=== PATIENT | female | born 1950 | race Caucasian/White ===

== ENCOUNTER 2025-04-13 21:11 | Inpatient (IN) | payer MEDICARE, SELFPAY ==
[2025-04-13] VITALS (7 sets, daily range): BP systolic 136–202; BP diastolic 55–70; PULSE 75–92; RESP 14–25; TEMP 38.5–39.8; O2SAT 91–97; BMI 20.9
--- NOTE | ~2025-04-13 | FL_ITS ---
EXAMINATION: XR LUMBAR PUNCTURE CLINICAL INFORMATION: ?r/o meningitis encephalitis COMPARISON: None available. TECHNIQUE: Allowing explaining fluoroscopy-guided lumbar puncture procedure, benefits and risk of via phone to the patient's daughter, and verbal consent was obtained in presence of technologist [employer]. Patient was placed prone on fluoroscopy table and optimal site was selected along the L3-4 disc level. The area was marked and the skin. Marked area was cleaned and draped in usual sterile manner. 1% lidocaine was injected puncture site. A 22-gauge spinal needle was then inserted from the skin intrathecally under fluoroscopy. The stylet was removed and CSF fluid was collected in 4 test tubes. Postprocedure stylet was reintroduced and needle withdrawn. Complete hemostasis was achieved at puncture site. A simple Band-Aid placed on the skin site. Patient tolerated procedure extremely well FINDINGS: On the visualized images there is loss of L4-5 and L5-S1 disc level. There is mild spondylosis at the L3-4, L4-5 disc levels. No visible fracture, lytic or sclerotic process seen. Clear CSF fluid was aspirated in 4 test tubes measuring 11 mL. FLUOROSCOPY TIME: 30 seconds DOSE AREA PRODUCT: 447.7 uGy-m2 (microgray-meter squared) FL/FL guided lumbar puncture LP IMPRESSION: Successful fluoroscopy-guided L3-4 lumbar puncture performed without immediate complications. Electronically signed by: Mejia Hammond MD 04/14/2025 09:08 AM EDT
--- NOTE | ~2025-04-13 | CT_ITS ---
CLINICAL HISTORY: Stroke Protocol CT angiography head and neck with contrast. 3D Postprocessing. Comparison: None Findings: Aortic arch and cervical great vessels are patent with no aneurysm, dissection, hemodynamically significant stenoses, or occlusion. Intracranial arteries are patent. No aneurysm, dissection, hemodynamically significant stenoses, or occlusion. No abnormal intracranial enhancement. The visualized thyroid gland is unremarkable. No cervical mass or fluid collection. Lung apices clear. No acute fracture. IMPRESSION: Patent head and neck CTA. This document has been electronically signed by: Juan Renteria MD on 04/13/2025 22:25:52
--- NOTE | ~2025-04-13 | CT_ITS ---
CLINICAL HISTORY: Stroke Protocol CT head without contrast Comparison: None Findings: No intra-axial mass, midline shift, hydrocephalus, or acute hemorrhage. No significant atrophy-like change or white matter disease. The visualized paranasal sinuses and mastoid air cells are normal. The orbits are unremarkable. No skull fracture. IMPRESSION: 1. No acute intracranial findings. This document has been electronically signed by: Juan Renteria MD on 04/13/2025 21:36:56
--- NOTE | ~2025-04-13 | CT_ITS ---
CLINICAL HISTORY: Diffuse abdominal pain with vomiting diarrhea CT abdomen and pelvis without contrast Comparison: None Findings: This examination is limited by artifact related to the patient's arms and motion. No consolidation or effusion. The adrenal glands are not well visualized on this examination, possibly obscured by adjacent structures. 1.7 cm low-attenuation structure identified within the right hepatic lobe, possibly consistent with a cyst. The gallbladder and solid organs are otherwise within normal limits given the exam limitations. Contrast is identified within the bilateral renal collecting systems, limiting evaluation for urinary calculi. No hydronephrosis or hydroureter demonstrated. No bowel obstruction, pneumoperitoneum, or pneumatosis. Limited evaluation of the bowel related to bowel underdistention. A rectal catheter is in place. Pelvic contents unremarkable. The bladder is filled with contrast and fluid. No focal bladder wall thickening. Normal appendix. The bones are intact. Loss of intervertebral disc space height and vacuum disc phenomenon present at L4-L5. IMPRESSION: 1. Mildly limited examination as described above. No acute inflammatory process identified within the abdomen or pelvis. This document has been electronically signed by: Teddy Hinkle MD on 04/14/2025 00:17:59
--- NOTE | ~2025-04-13 | XR_ITS ---
CLINICAL HISTORY: Fever 1 view chest x-ray Comparison: None Findings: Portions of the exam are obscured by overlying material. No consolidation or effusion. Heart size is normal. No acute fracture. IMPRESSION: 1. No acute findings. This document has been electronically signed by: Juan Renteria MD on 04/13/2025 23:47:48
--- NOTE | 2025-04-13 21:14 | ECG_ITS ---
Test Reason : stroke Blood Pressure : */* mmHG Vent. Rate : 85 BPM Atrial Rate : 85 BPM P-R Int : 162 ms QRS Dur : 84 ms QT Int : 342 ms P-R-T Axes : 70 36 149 degrees QTcB Int : 406 ms Normal sinus rhythm Possible Left atrial enlargement ST & T wave abnormality, consider lateral ischemia Abnormal ECG No previous ECGs available Referred By: Domingo Peralta Electronically Signed By: COURTNEY VILLALTA MD
[2025-04-13 21:24] LABS: Prothrombin Time Whole Bld POC 10.8 sec (11.1-13.5); ~PT, ~INR - Anti Coag Clinic 0.9 (0.9-1.1)
[2025-04-13 21:29] LABS: Basophils Percent Auto 0.2 % (0-2); Mean Corpuscular Volume 84.2 fL (80.0-98.0); PLT CLUMP 1; SCAN SMEAR FLAG 1
[2025-04-13 21:30] LABS: Eosinophils Absolute Auto 0.1 X10*3/uL (0.0-0.4); Hematocrit 29.8 % (37.0-47.0); Hemoglobin 9.9 g/dl (12.0-16.0); Imm Gran Abs Auto 0.06 X10*3/uL (0.00-0.03); Imm Gran Pct Auto 0.5 % (0.0-0.4); Lymphocytes Absolute Auto 1.7 X10*3/uL (1.2-4.9); Lymphocytes Percent Auto 12.9 % (20-40); MANUAL DIFF FLAG SCAN; Mean Corpuscular HGB Conc 33.2 g/dl (31.0-35.0); Mean Platelet Volume 11.2 fL (9.4-12.3); Monocytes Absolute Auto 0.4 X10*3/uL (0.1-1.2); Neutrophils Absolute Auto 10.9 x10*3/uL (2.0-8.3); Neutrophils Percent Auto 82.4 % (45-73); Red Blood Count 3.54 X10*6/uL (4.20-5.50); Red Cell Distribution Width 13.3 % (11.0-16.0)
[2025-04-13] MEDS: iohexoL 350 MG/ML 100 ML INFUS..BTL 75 ML IV (21:31)
[2025-04-13 21:35] LABS: Prothrombin Time 11.5 SEC (10.9-12.4)
[2025-04-13 21:39] LABS: Stroke Lab Use COMPLETE
[2025-04-13 21:45] LABS: Alanine Aminotransferase 20 U/L (0-31); Albumin Level 3.9 g/dL (3.5-5.0); Alkaline Phosphatase 75 U/L (39-117); Anion Gap 16 (12-20); Aspartate Amino Transferase 34 U/L (5-31); Blood Urea Nitrogen 15 mg/dL (9-16); Calcium 9.2 mg/dL (8.4-10.2); Carbon Dioxide 21 mmol/L (22-29); Chloride 111 mmol/L (96-108); Cholesterol 131 mg/dL (<200); Creatinine Clr Calc Pharmacy 49.1; Estimated Glomerular Filt Rate > 60; Glucose Random 112 mg/dL (60-115); HDL Cholesterol 68 mg/dL (>40); LDL Cholesterol Calculated 52 mg/dL (<100); Lactic Acid 2.9 mmol/L (0.5-2.0); Magnesium 1.4 mg/dL (1.6-2.6); Potassium 3.3 mmol/L (3.3-5.1); Sodium 145 mmol/L (135-145); Total Protein 6.4 g/dL (6.5-8.0); Triglycerides 58 mg/dL (<150)
[2025-04-13 21:49] LABS: Troponin-I High Sensitivity 11.2 ng/L (<3.5-17.0)
[2025-04-13] MEDS: 0.9 % Sodium Chloride 2,000 ML 2000 ML IV (21:49)
[2025-04-13 21:50] LABS: Platelet Count 117 X10*3/uL (160-400); SLIDE REVIEW VERIFIED; White Blood Count 13.2 X10*3/uL (4.8-10.8)
[2025-04-13] MEDS: Acetaminophen 1,000 MG/100 ML PIGGYBACK 400 MG IV (21:59)
[2025-04-13] MEDS: ondansetron HCL 4 MG/2 ML VIAL IVPUSH (21:59)
[2025-04-13] MEDS: cefTRIAXone sodium 1 GM VIAL IVPUSH (21:59)
--- NOTE | 2025-04-13 22:09 | ED_ITS ---
HPI - Neuro Symptoms/Deficit General Chief Complaint: Stroke Stated Complaint: stroke alrt lethagic, cold, vomiting, not speaking Source: EMS Mode of arrival: EMS Limitations: altered mental status History of Present Illness ED Provider: HPI Narrative: Patient is brought by EMS for feeling weak shaking vomiting feeling warm since 20:00 was confused and weak overall and not talking moving all 4 extremities after arrival patient was talking minimal words febrile to touch temperature was 103.6 degrees patient also had watery stool according to patient's daughter patient has had a good day was driving came home at 18:00 at 20:00 she called her daughter saying that she had not feeling well when daughter went upstairs she noticed she is having severe chills and was feeling very weak and pale nauseated vomiting Related Data Allergies Allergy/AdvReac Type Severity Reaction Status Date / Time No Known Allergies Allergy Verified 04/13/25 21:42 Review of Systems 2 Review of Systems: Yes all other systems are reviewed and are negative PMFSH Past Medical History Medical History Hypertension Dementia Hypothyroidism Mixed hyperlipidemia Insulin dependent type 2 diabetes mellitus, controlled Social History Social History Smoked in Last 30 Days: No Use of substances other than those prescribed or required for medical reasons: No Advance Directives: Yes Advance Directives Information Provided: Yes Advance Directives on File: No Physical Exam 2 Vital Signs: Vital Signs: Last Vital Signs Temp 98.6 F 04/14/25 05:30 Pulse 63 04/14/25 05:30 Resp 13 04/14/25 05:30 BP 144/71 H 04/14/25 05:30 Pulse Ox 94 04/14/25 03:23 O2 Del Method Room Air 04/14/25 03:23 BMI result Body Mass Index 20.9 Appearance: Lethargic warm to touch No acute distress. Eyes: No pallor or icterus ENT: Pharynx normal. Oral Mucosa moist Neck: Normal inspection. Neck supple. CVS: Normal heart rate and rhythm. Pulses normal. Respiratory: No respiratory distress. Equal air entry bilateral, no wheezing/rales/rhonchi Abdomen: Soft and nontender. Bowel sounds are present, no mass palpable, no CVA tenderness Skin: Skin warm and dry. Normal skin color. Normal skin turgor. Extremities: No lower extremity edema. No calf tenderness Neuro: Oriented X 3. No motor deficit. No sensory deficit.No cerebellar signs , cranial nerves II-XII intact generalized weakness Medications Administered Generic Name Dose Route Start Last Admin Trade Name Dandyq PRN Reason Stop Dose Admin Dexamethasone Sodium Phosphate 10 mg 04/14/25 02:30 04/14/25 03:16 Dexamethasone Sod Phosphate 10 Mg/Ml Vial IVPUSH 10 mg Q6H ABRAHAM Administration Dextrose 25 gm 04/14/25 02:31 04/14/25 03:33 Dextrose 50 % 25 Gm/50 Ml Syringe IVPUSH 25 gm Q15M PRN Administration per Hypoglycemia Standing Ord. Protocol Acyclovir Sodium 549 mg/ 110.98 mls @ 110.98 mls/hr 04/14/25 03:00 04/14/25 04:20 Sodium Chloride IV Infused Q8H ABRAHAM Infusion Insulin Human Lispro 0 unit 04/14/25 02:45 04/14/25 03:35 Insulin Lispro 100 Unit/Ml 3 Ml Vial SUBCUT Not Given Q6H [facility] Protocol Discontinued Medications Generic Name Dose Route Start Last Admin Trade Name Dandyq PRN Reason Stop Dose Admin Ceftriaxone Sodium 1 gm 04/13/25 21:45 04/13/25 21:59 Ceftriaxone Sodium 1 Gm Vial IVPUSH 04/13/25 21:46 1 gm ONCE ONE Administration Acetaminophen 1,000 mg in 100 mls @ 400 mls/hr 04/13/25 21:44 04/13/25 22:35 Ofirmev IV 04/13/25 21:58 Infused ONCE ONE Infusion Sodium Chloride 2,000 mls @ 2,000 mls/hr 04/13/25 21:45 04/14/25 00:08 Ns IV 04/13/25 22:44 Infused .Q1H STA Infusion Magnesium Sulfate 2 gm in 50 mls @ 25 mls/hr 04/13/25 22:16 04/14/25 00:30 Magnesium Sulfate/H2o IV 04/14/25 00:15 Infused ONCE ONE Infusion Ampicillin Sodium 2 gm/ Sodium 100 mls @ 200 mls/hr 04/14/25 03:00 04/14/25 05:01 Chloride IV Infused Q4H ABRAHAM Infusion Vancomycin HCl 1,500 mg/ 500 mls @ 333.333 mls/hr 04/14/25 03:15 04/14/25 05:12 Sodium Chloride IV 04/14/25 04:44 Infused ONCE ONE Infusion Iohexol 75 ml 04/13/25 21:31 04/13/25 21:31 Iohexol 350 Mg/Ml 100 Ml Infus..Btl IV 04/13/25 21:32 75 ml ONCE ONE Administration Ondansetron HCl 4 mg 04/13/25 21:45 04/13/25 21:59 Ondansetron Hcl 4 Mg/2 Ml Vial IVPUSH 04/13/25 21:46 4 mg ONCE ONE Administration Medical Decision Making Medical Decision Making [facility] Narrative: Patient has acute onset of nausea vomiting and fever etiology not very clear workup showed elevated WBC count with left shift CT abdomen is negative for acute chest x-ray CT scan of the head and CT neck also negative, C diff negative in stool Differential Diagnosis Differential Diagnoses: The differential diagnosis associated with the presentation includes CVA/metabolic encephalopathy/bacteremia/UTI Admission/Observation Consideration of admission/observation: Escalation of care including admission/observation considered Consult Healthcare Provider Management of the patient was discussed with: Hospitalist Lab Data [facility] Lab Attestation statement: I reviewed the patient's lab results. 04/13/25 21:15 04/13/25 21:15 Labs: Lab Results 04/13/25 04/13/25 04/13/25 Range/Units 21:14 21:15 21:52 WBC 13.2 H (4.8-10.8) X10*3/uL RBC 3.54 L (4.20-5.50) X10*6/uL Hgb 9.9 L (12.0-16.0) g/dl Hct 29.8 L (37.0-47.0) % MCV 84.2 (80.0-98.0) fL MCH 28.0 (27.0-33.0) pg MCHC 33.2 (31.0-35.0) g/dl RDW 13.3 (11.0-16.0) % Plt Count 117 L (160-400) X10*3/uL MPV 11.2 (9.4-12.3) fL Immature Gran % (Auto) 0.5 H (0.0-0.4) % Neut % (Auto) 82.4 H (45-73) % Lymph % (Auto) 12.9 L (20-40) % [place] % (Auto) 3.0 (2-11) % Eos % (Auto) 1.0 (0-4) % Baso % (Auto) 0.2 (0-2) % Lymph # (Auto) 1.7 (1.2-4.9) X10*3/uL [place] # (Auto) 0.4 (0.1-1.2) X10*3/uL Eos # (Auto) 0.1 (0.0-0.4) X10*3/uL Baso # (Auto) 0.0 (0.0-0.2) X10*3/uL Abs Immat Gran (auto) 0.06 H (0.00-0.03) X10*3/uL Absolute Neuts (auto) 10.9 H (2.0-8.3) x10*3/uL Absolute Nucleated RBC 0.000 (0.0-0.012) X10*3/uL Nucleated RBC % (auto) 0.0 (0.0-0.2) /100WBC Smear Tech's Comments VERIFIED Hold Purple Top SEE NOTE PT 11.5 (10.9-12.4) SEC Whole Blood PT 10.8 L (11.1-13.5) sec INR 1.0 (0.9-1.1) Whole Blood INR 0.9 (0.9-1.1) APTT 30.0 (26.0-36.8) SEC Sodium 145 (135-145) mmol/L Potassium 3.3 (3.3-5.1) mmol/L Chloride 111 H (96-108) mmol/L Carbon Dioxide 21 L (22-29) mmol/L Anion Gap 16 (12-20) BUN 15 (9-16) mg/dL Creatinine 0.84 (0.5-1.4) mg/dL Estim Creat Clear Calc 49.1 Estimated GFR > 60 Random Glucose 112 (60-115) mg/dL Lactic Acid 2.9 H* (0.5-2.0) mmol/L Lactic Acid F/U @ 2Hr (0.5-2.0) mmol/L Calcium 9.2 (8.4-10.2) mg/dL Magnesium 1.4 L* (1.6-2.6) mg/dL Total Bilirubin 1.0 (0.0-1.0) mg/dL AST 34 H (5-31) U/L ALT 20 (0-31) U/L Alkaline Phosphatase 75 (39-117) U/L Troponin I High Sens 11.2 (<3.5-17.0) ng/L Total Protein 6.4 L (6.5-8.0) g/dL Albumin 3.9 (3.5-5.0) g/dL Triglycerides 58 (<150) mg/dL Cholesterol 131 (<200) mg/dL LDL Cholesterol, Calc 52 (<100) mg/dL HDL Cholesterol 68 (>40) mg/dL Urine Color Urine Appearance Urine pH (5.0-9.0) Ur Specific [place] (1.005-1.025) Urine Protein (Neg-Trace) mg/dL Urine Glucose (UA) (Negative) mg/dL Urine Ketones (Negative) mg/dL Urine Blood (Negative) Urine Nitrite (Negative) Ur Leukocyte Esterase (Negative) Urine RBC (0-2) /HPF Urine WBC (0-5) /HPF Ur Squamous Epith Cells (0-2) /HPF Urine Bacteria (None Seen) Hyaline Casts (0-2) /LPF C. difficile Tox B Gene (Negative) Influenza Type A (PCR) NEGATIVE (Negative) Influenza Type B (PCR) NEGATIVE (Negative) RSV RNA Qual (PCR) NEGATIVE (Negative) SARS-CoV-2 RNA (RT-PCR) NEGATIVE (Negative) 04/13/25 04/14/25 04/14/25 Range/Units 22:55 00:15 00:43 WBC (4.8-10.8) X10*3/uL RBC (4.20-5.50) X10*6/uL Hgb (12.0-16.0) g/dl Hct (37.0-47.0) % MCV (80.0-98.0) fL MCH (27.0-33.0) pg MCHC (31.0-35.0) g/dl RDW (11.0-16.0) % Plt Count (160-400) X10*3/uL MPV (9.4-12.3) fL Immature Gran % (Auto) (0.0-0.4) % Neut % (Auto) (45-73) % Lymph % (Auto) (20-40) % [place] % (Auto) (2-11) % Eos % (Auto) (0-4) % Baso % (Auto) (0-2) % Lymph # (Auto) (1.2-4.9) X10*3/uL [place] # (Auto) (0.1-1.2) X10*3/uL Eos # (Auto) (0.0-0.4) X10*3/uL Baso # (Auto) (0.0-0.2) X10*3/uL Abs Immat Gran (auto) (0.00-0.03) X10*3/uL Absolute Neuts (auto) (2.0-8.3) x10*3/uL Absolute Nucleated RBC (0.0-0.012) X10*3/uL Nucleated RBC % (auto) (0.0-0.2) /100WBC Smear Tech's Comments Hold Purple Top PT (10.9-12.4) SEC Whole Blood PT (11.1-13.5) sec INR (0.9-1.1) Whole Blood INR (0.9-1.1) APTT (26.0-36.8) SEC Sodium (135-145) mmol/L Potassium (3.3-5.1) mmol/L Chloride (96-108) mmol/L Carbon Dioxide (22-29) mmol/L Anion Gap (12-20) BUN (9-16) mg/dL Creatinine (0.5-1.4) mg/dL Estim Creat Clear Calc Estimated GFR Random Glucose (60-115) mg/dL Lactic Acid (0.5-2.0) mmol/L Lactic Acid F/U @ 2Hr 2.4 H* (0.5-2.0) mmol/L Calcium (8.4-10.2) mg/dL Magnesium (1.6-2.6) mg/dL Total Bilirubin (0.0-1.0) mg/dL AST (5-31) U/L ALT (0-31) U/L Alkaline Phosphatase (39-117) U/L Troponin I High Sens (<3.5-17.0) ng/L Total Protein (6.5-8.0) g/dL Albumin (3.5-5.0) g/dL Triglycerides (<150) mg/dL Cholesterol (<200) mg/dL LDL Cholesterol, Calc (<100) mg/dL HDL Cholesterol (>40) mg/dL Urine Color Yellow Urine Appearance Clear Urine pH 5.5 (5.0-9.0) Ur Specific [place] 1.015 (1.005-1.025) Urine Protein 30 (1+) H (Neg-Trace) mg/dL Urine Glucose (UA) Negative (Negative) mg/dL Urine Ketones Negative (Negative) mg/dL Urine Blood Small (1+) H (Negative) Urine Nitrite Positive H (Negative) Ur Leukocyte Esterase Trace H (Negative) Urine RBC 0-2 (0-2) /HPF Urine WBC 0-5 (0-5) /HPF Ur Squamous Epith Cells 0-2 (0-2) /HPF Urine Bacteria 4+ (None Seen) Hyaline Casts 0-2 (0-2) /LPF C. difficile Tox B Gene NEGATIVE (Negative) Influenza Type A (PCR) (Negative) Influenza Type B (PCR) (Negative) RSV RNA Qual (PCR) (Negative) SARS-CoV-2 RNA (RT-PCR) (Negative) Independent Interpretation I performed an independent interpretation of an: CT Scan Radiology Impression Discussion of test interpretation with radiology: I have reviewed the radiologist's reading. Radiologist Impression: No acute finding in abdominal CT, head CT, CTA head and neck chest x-ray negative NIH Stroke Scale Internal: Initial- Upon Arrival Level of Consciousness: Not Alert; but arousable by minor stimulation Level of Consciousness Questions: Answers one question correctly Level of Consciousness Commands: Performs one task correctly Best Gaze: Normal Visual: No visual loss Facial Palsy: Normal Motor Arm (Right): Some effort against gravity Motor Arm (Left): Some effort against gravity Motor Leg (Right): Some effort against gravity Motor Leg (Left): Some effort against gravity Limb Ataxia: Absent Sensory: Normal Best Language: Mild to moderate aphasia Dysarthia: Normal Extinction and Inattention: No abnormality Score: 12 Critical Care Time Critical Care Time Critical Care Time: Yes Total Critical Care Time: 55 Attestation: The patient was critically ill with a high probability of imminent or life threatening deterioration. I spent greater than 60??minutes of discontinuous time evaluating the patient,delivering critical care at the bedside, discussing and evaluating pertinent data with consultants. Critical care time does not include time spent performing separately billable procedures or teaching. Total time spent performing critical care was ?55??minutes. Discharge Plan Discharge Clinical Impression: Acute metabolic encephalopathy, Acute UTI Patient Disposition: Admitted As Inpatient Interventions: Admission Worksheet (ED) Last Done: 04/14/25 06:00
[2025-04-13] MEDS: Magnesium Sulfate/H2O 2 GM/50 ML PIGGYBACK IV (22:34)
[2025-04-13 22:35] LABS: Influenza A PCR NEGATIVE (Negative); Influenza B PCR NEGATIVE (Negative); Resp Syncy Virus RNA Qual PCR NEGATIVE (Negative); SARS COV2 PCR INHOUSE NEGATIVE (Negative)
[2025-04-13 23:24] LABS: Reflex Lactate? Lactic Acid Added
[2025-04-13 23:46] LABS: CDiff Gene PCR NEGATIVE (Negative)
[2025-04-14] VITALS (12 sets, daily range): BP systolic 112–153; BP diastolic 48–71; PULSE 60–78; RESP 13–20; TEMP 36.3–38.3; O2SAT 93–97; BMI 24.8
[2025-04-14 00:51] LABS: ~Lactic Acid-LAB USE ONLY 2.4 mmol/L (0.5-2.0)
[2025-04-14 01:11] LABS: Appearance Urine Clear; Color Urine Yellow; Glucose Urine UA Negative (Negative); Leukocyte Esterase Urine Trace (Negative); Nitrite Urine Positive (Negative); PH 5.5 (5.0-9.0); Specific Gravity - Urine 1.015 (1.005-1.025); UMIC TRIGGER UACC YES; Urine Blood Small (1+) (Negative); Urine Ketones Negative (Negative); Urine Protein 30 (1+) mg/dL (Neg-Trace)
[2025-04-14 01:40] LABS: Bacteria Urine 4+ (None Seen); Hyaline Casts Urine 0-2 /LPF (0-2); RBC Urine 0-2 /HPF (0-2); Squamous Epithelial Cell Urine 0-2 /HPF (0-2); UACC Culture Trigger YES; WBC Urine 0-5 /HPF (0-5)
[2025-04-14 02:18] LABS: Reflex Lactate? 2 Y
--- NOTE | 2025-04-14 02:29 | PM.IMHP ---
History of Present Illness Date of Service: 04/14/25 Chief Complaint: AMS, fever This is a 75-year-old female with pertinent history of unspecified dementia, insulin-dependent diabetes mellitus, hypothyroidism, hypertension, mood disorder, mixed hyperlipidemia who was brought to the emergency department for evaluation of altered mentation and fever. Unable to obtain history from the patient. Patient is lethargic and drowsy at the time of my evaluation. Awakens to verbal stimulus but falls back asleep mid conversation. Does not know why she is in the hospital. She is disoriented to place and time. She has no complaints at the time of my evaluation. History obtained with the help of ER provider and chart review. Patient was brought in as she was found confused and febrile at home. Also was having watery stools as per the daughter. Unable to obtain review of systems. In the emergency department, patient was found to be febrile with fever 103.6 and leukocytosis 13.2. Review of Systems Review of Systems: Yes Unobtainable due to mental status [facility] Medical History Hypertension Dementia Hypothyroidism Mixed hyperlipidemia Insulin dependent type 2 diabetes mellitus, controlled Pertinent family history: Unable to obtain Social History Smoked in Last 30 Days: No Use of substances other than those prescribed or required for medical reasons: No Advance Directives: Yes Advance Directives Information Provided: Yes Advance Directives on File: No Meds Allergies Allergy/AdvReac Type Severity Reaction Status Date / Time No Known Allergies Allergy Verified 04/13/25 21:42 Physical Exam Vital Signs and Narrative: Vital Signs: Last Vital Signs Temp 99.3 F 04/14/25 02:27 Pulse 68 04/14/25 02:27 Resp 15 04/14/25 02:27 BP 130/52 L 04/14/25 02:27 Pulse Ox 95 04/14/25 02:27 O2 Del Method Room Air 04/14/25 02:27 BMI result Body Mass Index 20.9 Elderly female lying in bed in no distress Neck supple, no JVD Regular rate and rhythm, S1-S2 heard Regular breath sounds bilaterally, no wheezing or crackles appreciated Abdomen soft nontender, no guarding, no rigidity Patient is lethargic but awakens to verbal stimulus, disoriented to place and time Psych: Drowsy No pedal edema Results Labs 04/13/25 21:15 04/13/25 21:15 Labs: Laboratory Results - last 24 hr 04/13/25 04/13/25 04/13/25 21:14 21:15 21:52 MCV 84.2 MCH 28.0 MCHC 33.2 RDW 13.3 Plt Count 117 L MPV 11.2 Immature Gran % (Auto) 0.5 H Neut % (Auto) 82.4 H Lymph % (Auto) 12.9 L [place] % (Auto) 3.0 Eos % (Auto) 1.0 Baso % (Auto) 0.2 Lymph # (Auto) 1.7 [place] # (Auto) 0.4 Eos # (Auto) 0.1 Baso # (Auto) 0.0 Abs Immat Gran (auto) 0.06 H Absolute Neuts (auto) 10.9 H Absolute Nucleated RBC 0.000 Nucleated RBC % (auto) 0.0 Smear Tech's Comments VERIFIED Hold Purple Top SEE NOTE PT 11.5 Whole Blood PT 10.8 L INR 1.0 Whole Blood INR 0.9 APTT 30.0 Anion Gap 16 Estim Creat Clear Calc 49.1 Estimated GFR > 60 Random Glucose 112 Lactic Acid 2.9 H* Lactic Acid F/U @ 2Hr Calcium 9.2 Magnesium 1.4 L* Total Bilirubin 1.0 AST 34 H ALT 20 Alkaline Phosphatase 75 Total Protein 6.4 L Albumin 3.9 Triglycerides 58 Cholesterol 131 LDL Cholesterol, Calc 52 HDL Cholesterol 68 Urine Color Urine Appearance Urine pH Ur Specific [place] Urine Protein Urine Glucose (UA) Urine Ketones Urine Blood Urine Nitrite Ur Leukocyte Esterase Urine RBC Urine WBC Ur Squamous Epith Cells Urine Bacteria Hyaline Casts C. difficile Tox B Gene Influenza Type A (PCR) NEGATIVE Influenza Type B (PCR) NEGATIVE RSV RNA Qual (PCR) NEGATIVE SARS-CoV-2 RNA (RT-PCR) NEGATIVE 04/13/25 04/14/25 04/14/25 22:55 00:15 00:43 MCV MCH MCHC RDW Plt Count MPV Immature Gran % (Auto) Neut % (Auto) Lymph % (Auto) [place] % (Auto) Eos % (Auto) Baso % (Auto) Lymph # (Auto) [place] # (Auto) Eos # (Auto) Baso # (Auto) Abs Immat Gran (auto) Absolute Neuts (auto) Absolute Nucleated RBC Nucleated RBC % (auto) Smear Tech's Comments Hold Purple Top PT Whole Blood PT INR Whole Blood INR APTT Anion Gap Estim Creat Clear Calc Estimated GFR Random Glucose Lactic Acid Lactic Acid F/U @ 2Hr 2.4 H* Calcium Magnesium Total Bilirubin AST ALT Alkaline Phosphatase Total Protein Albumin Triglycerides Cholesterol LDL Cholesterol, Calc HDL Cholesterol Urine Color Yellow Urine Appearance Clear Urine pH 5.5 Ur Specific [place] 1.015 Urine Protein 30 (1+) H Urine Glucose (UA) Negative Urine Ketones Negative Urine Blood Small (1+) H Urine Nitrite Positive H Ur Leukocyte Esterase Trace H Urine RBC 0-2 Urine WBC 0-5 Ur Squamous Epith Cells 0-2 Urine Bacteria 4+ Hyaline Casts 0-2 C. difficile Tox B Gene NEGATIVE Influenza Type A (PCR) Influenza Type B (PCR) RSV RNA Qual (PCR) SARS-CoV-2 RNA (RT-PCR) Assessment and Plan (1) Acute metabolic encephalopathy: Status: Acute (2) Severe sepsis: Status: Acute Plan This is a 75-year-old female with pertinent history of unspecified dementia, insulin-dependent diabetes mellitus, hypothyroidism, hypertension, mood disorder, mixed hyperlipidemia who was brought to the emergency department for evaluation of altered mentation and fever. #. Acute metabolic encephalopathy due to severe sepsis: Resuscitated with IV crystalloids. Initiating broad-spectrum IV antibiotics. UA with trace leukocyte esterase and only 0-5 WBC. Will rule out meningitis/encephalitis in a patient with high fever and altered mentation. Lumbar puncture in a.m.. CSF studies pending. Follow blood culture and urine culture. Stool studies pending #. Insulin-dependent diabetes mellitus: Initiating Accu-Cheks with sliding scale insulin every 6 hours while patient is NPO #. Hypomagnesemia: Repleted #. Acute lactic acidosis due to sepsis #. Hypothyroidism: Resume Synthroid once mentation improves and no longer NPO. Obtaining TSH in a.m. #. Mood disorder: Hold home mood stabilizers Med rec pending DVT prophylaxis: Lovenox Full code. Unable to address code status at the time of admission. Readdress code status with family and patient in a.m.. Admit as inpatient and will require two night minimum hospital stay for IV antibiotics (as above), which is not possible in a lesser acute setting. Quality Stroke Does the patient have a stroke diagnosis?: No VTE Prior VTE?: No VTE Risk Level:: Medical - moderate - high VTE Device Contraindication: Treatment Not Indicated VTE Drug Contraindication: N/A - Med Ordered
[2025-04-14 02:54] LABS: ~Lactic Acid-LAB USE ONLY 1.4 mmol/L (0.5-2.0)
[2025-04-14] MEDS: SODIUM CHLORIDE 0.9% IV ×3 (03:16→19:16)
[2025-04-14] MEDS: ACYCLOVIR SODIUM IV ×3 (03:16→19:16)
[2025-04-14] MEDS: dexAMETHasone sod phosphate 10 MG/ML VIAL IVPUSH ×2 (03:16→10:19)
[2025-04-14] MEDS: vancomycin HCL 1,500 MG in 0.9 % Sodium Chloride 500 ML 333.33 MG IV (03:21)
[2025-04-14] MEDS: Dextrose 50 % 25 GM/50 ML SYRINGE IVPUSH (03:33)
[2025-04-14 03:42] LABS: Glucose, Whole Blood 58 mg/dL (60-115)
[2025-04-14] MEDS: Ampicillin Sodium 2 GM in 0.9 % Sodium Chloride 100 ML IV ×5 (04:20→21:22)
[2025-04-14 04:26] LABS: Glucose, Whole Blood 145 mg/dL (60-115)
[2025-04-14 06:41] LABS: Anion Gap 16 (12-20); Blood Urea Nitrogen 13 mg/dL (9-16); Calcium 7.9 mg/dL (8.4-10.2); Carbon Dioxide 17 mmol/L (22-29); Chloride 113 mmol/L (96-108); Creatinine Clr Calc Pharmacy 50.3; Estimated Glomerular Filt Rate > 60; Glucose Random 124 mg/dL (60-115); Potassium 4.8 mmol/L (3.3-5.1); Sodium 141 mmol/L (135-145)
[2025-04-14 07:00] LABS: Thyroid Stimulating Hormone 0.72 uIU/mL (0.32-4.0)
--- NOTE | 2025-04-14 07:07 | PHA.PROG ---
Admission Date/Time: April 14, 2025 01:44 Indication: SEPSIS Weight in k.2 kg Adjusted body weight in K.9 KG [place] body weight in K.7 KG Obesity Dosing Indication % IBW: Serum Creatinine - Last 168 Hours 04/13/25 04/14/25 21:15 06:16 Creatinine 0.84 0.82 Estimated CrCl and GFR - Last 168 Hours 04/13/25 04/14/25 21:15 06:16 Estim Creat Clear Calc 49.1 50.3 Estimated GFR > 60 > 60 Vancomycin Loading Dose: 1500 MG X1 Current Vancomycin Dosing Regimen: 500 MG Q24H Vancomycin Monitoring using AUC goal of 400 - 600 range with trough as surrogate marker: PREDICTED AUC 551 Date and Time for next Vancomycin Level to be drawn: BEFORE 3RD DOSE 04/15/25 Pharmacist Comments on Vancomycin Plan: Vancomycin dosing will take advantage of [employer] as a clinical decision support tool that uses Bayesian modeling to calculate individual patient's pharmacokinetic parameters and forecast the patient's drug concentration time course with the target goal AUC 24 range of 400 - 600 mg/L/hr.
--- NOTE | 2025-04-14 07:42 | PHA.MEDREC ---
Pharmacy Consult ? Medication Reconciliation Pharmacy has completed the medication reconciliation. Spoke with patient at bedside, she was able to tell me what she took with some prompting. Unsure about Donepezil but she filled a 90 day supply last month.
--- NOTE | 2025-04-14 07:43 | PC.NURSE ---
patient off unit for LP
[2025-04-14 09:07] LABS: CSF Appearance Clear, Colorless; CSF Tube # 2
[2025-04-14] MEDS: Lactated Ringers 1,000 ML 125 ML IVCONT ×3 (09:21→23:28)
[2025-04-14 09:28] LABS: Glucose CSF 58 mg/dL; Total Protein CSF 83.3 mg/dL (15-45)
[2025-04-14 09:32] LABS: Glucose, Whole Blood 115 mg/dL (60-115)
[2025-04-14] MEDS: predniSONE 5 MG TABLET PO (09:43)
[2025-04-14] MEDS: cefTRIAXone sodium 2 GM VIAL IVPUSH ×2 (09:43→21:15)
[2025-04-14] MEDS: Atorvastatin Calcium 80 MG TABLET PO (09:43)
[2025-04-14 09:44] LABS: Adenovirus F 40/41 Not Detected (Not Detect.); Astrovirus Not Detected (Not Detect.); Campylobacter Not Detected (Not Detect.); Cryptosporidium Not Detected (Not Detect.); Cyclospora cayetanensis Not Detected (Not Detect.); E. coli EAEC Not Detected (Not Detect.); E. coli EPEC Not Detected (Not Detect.); E. coli ETEC Not Detected (Not Detect.); E. coli STEC Not Detected (Not Detect.); Entamoeba histolytica Not Detected (Not Detect.); Giardia lamblia Not Detected (Not Detect.); Norovirus GI/GII Not Detected (Not Detect.); Plesiomonas shigelloides Not Detected (Not Detect.); Rotavirus A Not Detected (Not Detect.); Salmonella Not Detected (Not Detect.); Sapovirus Not Detected (Not Detect.); Shigella sp./EIEC Not Detected (Not Detect.); Vibrio Not Detected (Not Detect.); Vibrio Cholerae Not Detected (Not Detect.); Yersinia enterocolitica Not Detected (Not Detect.)
[2025-04-14] MEDS: Donepezil HCl 5 MG TABLET PO (09:44)
[2025-04-14] MEDS: Levothyroxine Sodium 100 MCG TABLET PO (09:44)
[2025-04-14] MEDS: Metoprolol Succinate ER 25 MG TAB.ER.24H PO (09:44)
--- NOTE | 2025-04-14 10:12 | P.PNIM_ITS ---
Subjective Subjective Date of Service: 04/14/25 Interval History: f/u on sepsis, uti, concern for meningitis/encephalitis, lp no evidence of meningitis, mental status is better Physical Exam 2 Vital Signs: Vital Signs: Last Vital Signs Temp 97.8 F 04/14/25 08:37 Pulse 62 04/14/25 08:37 Resp 16 04/14/25 08:37 BP 153/67 H 04/14/25 08:37 Pulse Ox 97 04/14/25 08:37 O2 Del Method Room Air 04/14/25 08:37 BMI result Body Mass Index 24.8 Const: Other: General: AO X 2, no acute distress Resp: CTA bilateral CVS: S1,S2,RRR GI: +BS, NT, no distention Skin: No rash Neuro: motor grossly intact Psych: appropriate affect Objective Data Active Medications Acetaminophen (Acetaminophen 325 Mg Tablet) 650 mg PO Q6H PRN PRN Reason: Pain, Mild 1-3,fever,headache Atorvastatin Calcium (Atorvastatin Calcium 80 Mg Tablet) 80 mg PO DAILY [facility] Last Admin: 04/14/25 09:43 Dose: 80 mg Documented By: ANTOINE Calcium Carbonate (Calcium Carbonate 750 Mg Tab.Chew) 750 mg PO Q4H PRN PRN Reason: Heartburn Ceftriaxone Sodium (Ceftriaxone Sodium 2 Gm Vial) 2 gm IVPUSH Q12H [facility] Last Admin: 04/14/25 09:43 Dose: 2 gm Documented By: ANTOINE Dexamethasone Sodium Phosphate (Dexamethasone Sod Phosphate 10 Mg/Ml Vial) 10 mg IVPUSH Q6H [facility] Last Admin: 04/14/25 03:16 Dose: 10 mg Documented By: TRISTAN Dextrose (Dextrose 50 % 25 Gm/50 Ml Syringe) 25 gm IVPUSH Q15M PRN; Protocol PRN Reason: per Hypoglycemia Standing Ord. Last Admin: 04/14/25 03:33 Dose: 25 gm Documented By: TRISTAN Donepezil HCl (Donepezil Hcl 5 Mg Tablet) 5 mg PO DAILY [facility] Last Admin: 04/14/25 09:44 Dose: 5 mg Documented By: ANTOINE Enoxaparin Sodium (Enoxaparin Sodium 40 Mg/0.4 Ml Syringe) 40 mg SUBCUT Q24H [facility] Glucose (Glucose Gel 15 Gm Gel..Gram.) 15 gm PO Q15M PRN; Protocol PRN Reason: per Hypoglycemia Standing Ord. Acyclovir Sodium 549 mg/ (Sodium Chloride) 110.98 mls @ 110.98 mls/hr IV Q8H [facility] Last Infusion: 04/14/25 04:20 Dose: Infused Documented By: TRISTAN Ampicillin Sodium 2 gm/ Sodium (Chloride) 100 mls @ 200 mls/hr IV Q4H [facility] Last Admin: 04/14/25 09:45 Dose: 200 mls/hr Documented By: ANTOINE Vancomycin HCl 500 mg/ Sodium (Chloride) 110 mls @ 110 mls/hr IV Q24H [facility] Lactated Ringer's (Lr) 1,000 mls @ 125 mls/hr IVCONT .Q8H [facility] Last Admin: 04/14/25 09:21 Dose: 125 mls/hr Documented By: ANTOINE Insulin Human Lispro (Insulin Lispro 100 Unit/Ml 3 Ml Vial) 0 unit SUBCUT Q6H [facility]; Protocol Last Admin: 04/14/25 09:44 Dose: Not Given Documented By: ANTOINE Non-Admin Reason: No Insulin Coverage Levothyroxine Sodium (Levothyroxine Sodium 100 Mcg Tablet) 100 mcg PO DAILY@0600 [facility] Last Admin: 04/14/25 09:44 Dose: 100 mcg Documented By: ANTOINE Magnesium Hydroxide (Milk Of Magnesia 30 Ml Oral.Susp) 30 ml PO DAILY PRN PRN Reason: Constipation Melatonin (Melatonin 3 Mg Tablet) 6 mg PO BEDTIME PRN PRN Reason: Insomnia Metoprolol Succinate (Metoprolol Succinate Er 25 Mg Tab.Er.24h) 25 mg PO DAILY [facility]; Protocol Last Admin: 04/14/25 09:44 Dose: 25 mg Documented By: ANTOINE Omeprazole (Omeprazole 20 Mg Capsule.Dr) 20 mg PO DAILY@0630 [facility] Ondansetron HCl (Ondansetron Hcl 4 Mg/2 Ml Vial) 4 mg IVPUSH Q8H PRN PRN Reason: Nausea and Vomiting Pharmacy Consult (Consult Rx Vancomycin Dosing) 1 each MISCELLANE DAILY PRN PRN Reason: Consult order Prednisone (Prednisone 5 Mg Tablet) 5 mg PO DAILY [facility] Last Admin: 04/14/25 09:43 Dose: 5 mg Documented By: ANTOINE Sodium Chloride (0.9 % Sodium Chloride Flush 3 Ml Syringe) 3 ml IVFLUSH QSHIFT [facility] Last Admin: 04/14/25 09:25 Dose: Not Given Documented By: ANTOINE Non-Admin Reason: Previously Administered Labs 04/13/25 21:15 04/14/25 06:16 Labs: Laboratory Results - last 24 hr 04/13/25 04/13/25 04/13/25 21:14 21:15 21:52 MCV 84.2 MCH 28.0 MCHC 33.2 RDW 13.3 Plt Count 117 L MPV 11.2 Immature Gran % (Auto) 0.5 H Neut % (Auto) 82.4 H Lymph % (Auto) 12.9 L Frio % (Auto) 3.0 Eos % (Auto) 1.0 Baso % (Auto) 0.2 Lymph # (Auto) 1.7 Frio # (Auto) 0.4 Eos # (Auto) 0.1 Baso # (Auto) 0.0 Abs Immat Gran (auto) 0.06 H Absolute Neuts (auto) 10.9 H Absolute Nucleated RBC 0.000 Nucleated RBC % (auto) 0.0 Smear Tech's Comments VERIFIED Hold Purple Top SEE NOTE PT 11.5 Whole Blood PT 10.8 L INR 1.0 Whole Blood INR 0.9 APTT 30.0 Anion Gap 16 Estim Creat Clear Calc 49.1 Estimated GFR > 60 POC Glucose 115 Random Glucose 112 Lactic Acid 2.9 H* Lactic Acid F/U @ 2Hr Lactic Acid F/U @ 4Hr Calcium 9.2 Magnesium 1.4 L* Total Bilirubin 1.0 AST 34 H ALT 20 Alkaline Phosphatase 75 Total Protein 6.4 L Albumin 3.9 Triglycerides 58 Cholesterol 131 LDL Cholesterol, Calc 52 HDL Cholesterol 68 TSH Urine Color Urine Appearance Urine pH Ur Specific [place] Urine Protein Urine Glucose (UA) Urine Ketones Urine Blood Urine Nitrite Ur Leukocyte Esterase Urine RBC Urine WBC Ur Squamous Epith Cells Urine Bacteria Hyaline Casts CSF Tube Number CSF Appearance (b) CSF Glucose CSF Total Protein Stl C. cayetanensis PCR Stool Rotavirus A PCR Stl Adenov F 40/41 PCR Stool Astrovirus (PCR) Stool Campylobacter PCR Stool Cryptosporidium PCR Stl Sh Tox Pr E STEC PCR Stool E coli O157 PCR Stl Enterotoxigenic E PCR Stool EPEC (PCR) Stool EAEC (PCR) Stl E. histolytica PCR Stool Giardia Lamblia PCR Stl P. shigelloides PCR Stool Salmonella PCR Stool Sapovirus (PCR) Stl Shigella/EIEC PCR St Y.enterocolitica PCR Stool Vibrio (PCR) Stl Vibrio cholerae PCR Stl Norovirus GI/GII PCR C. difficile Tox B Gene Influenza Type A (PCR) NEGATIVE Influenza Type B (PCR) NEGATIVE RSV RNA Qual (PCR) NEGATIVE SARS-CoV-2 RNA (RT-PCR) NEGATIVE 04/13/25 04/14/25 04/14/25 22:55 00:15 00:43 MCV MCH MCHC RDW Plt Count MPV Immature Gran % (Auto) Neut % (Auto) Lymph % (Auto) Frio % (Auto) Eos % (Auto) Baso % (Auto) Lymph # (Auto) Frio # (Auto) Eos # (Auto) Baso # (Auto) Abs Immat Gran (auto) Absolute Neuts (auto) Absolute Nucleated RBC Nucleated RBC % (auto) Smear Tech's Comments Hold Purple Top PT Whole Blood PT INR Whole Blood INR APTT Anion Gap Estim Creat Clear Calc Estimated GFR POC Glucose Random Glucose Lactic Acid Lactic Acid F/U @ 2Hr 2.4 H* Lactic Acid F/U @ 4Hr Calcium Magnesium Total Bilirubin AST ALT Alkaline Phosphatase Total Protein Albumin Triglycerides Cholesterol LDL Cholesterol, Calc HDL Cholesterol TSH Urine Color Yellow Urine Appearance Clear Urine pH 5.5 Ur Specific [place] 1.015 Urine Protein 30 (1+) H Urine Glucose (UA) Negative Urine Ketones Negative Urine Blood Small (1+) H Urine Nitrite Positive H Ur Leukocyte Esterase Trace H Urine RBC 0-2 Urine WBC 0-5 Ur Squamous Epith Cells 0-2 Urine Bacteria 4+ Hyaline Casts 0-2 CSF Tube Number CSF Appearance (b) CSF Glucose CSF Total Protein Stl C. cayetanensis PCR Not Detected Stool Rotavirus A PCR Not Detected Stl Adenov F 40/41 PCR Not Detected Stool Astrovirus (PCR) Not Detected Stool Campylobacter PCR Not Detected Stool Cryptosporidium PCR Not Detected Stl Sh Tox Pr E STEC PCR Not Detected Stool E coli O157 PCR Not applicable Stl Enterotoxigenic E PCR Not Detected Stool EPEC (PCR) Not Detected Stool EAEC (PCR) Not Detected Stl E. histolytica PCR Not Detected Stool Giardia Lamblia PCR Not Detected Stl P. shigelloides PCR Not Detected Stool Salmonella PCR Not Detected Stool Sapovirus (PCR) Not Detected Stl Shigella/EIEC PCR Not Detected St Y.enterocolitica PCR Not Detected Stool Vibrio (PCR) Not Detected Stl Vibrio cholerae PCR Not Detected Stl Norovirus GI/GII PCR Not Detected C. difficile Tox B Gene NEGATIVE Influenza Type A (PCR) Influenza Type B (PCR) RSV RNA Qual (PCR) SARS-CoV-2 RNA (RT-PCR) 04/14/25 04/14/25 04/14/25 02:32 03:28 04:19 MCV MCH MCHC RDW Plt Count MPV Immature Gran % (Auto) Neut % (Auto) Lymph % (Auto) Frio % (Auto) Eos % (Auto) Baso % (Auto) Lymph # (Auto) Frio # (Auto) Eos # (Auto) Baso # (Auto) Abs Immat Gran (auto) Absolute Neuts (auto) Absolute Nucleated RBC Nucleated RBC % (auto) Smear Tech's Comments Hold Purple Top PT Whole Blood PT INR Whole Blood INR APTT Anion Gap Estim Creat Clear Calc Estimated GFR POC Glucose 58 L* 145 H Random Glucose Lactic Acid Lactic Acid F/U @ 2Hr Lactic Acid F/U @ 4Hr 1.4 Calcium Magnesium Total Bilirubin AST ALT Alkaline Phosphatase Total Protein Albumin Triglycerides Cholesterol LDL Cholesterol, Calc HDL Cholesterol TSH Urine Color Urine Appearance Urine pH Ur Specific [place] Urine Protein Urine Glucose (UA) Urine Ketones Urine Blood Urine Nitrite Ur Leukocyte Esterase Urine RBC Urine WBC Ur Squamous Epith Cells Urine Bacteria Hyaline Casts CSF Tube Number CSF Appearance (b) CSF Glucose CSF Total Protein Stl C. cayetanensis PCR Stool Rotavirus A PCR Stl Adenov F 40/41 PCR Stool Astrovirus (PCR) Stool Campylobacter PCR Stool Cryptosporidium PCR Stl Sh Tox Pr E STEC PCR Stool E coli O157 PCR Stl Enterotoxigenic E PCR Stool EPEC (PCR) Stool EAEC (PCR) Stl E. histolytica PCR Stool Giardia Lamblia PCR Stl P. shigelloides PCR Stool Salmonella PCR Stool Sapovirus (PCR) Stl Shigella/EIEC PCR St Y.enterocolitica PCR Stool Vibrio (PCR) Stl Vibrio cholerae PCR Stl Norovirus GI/GII PCR C. difficile Tox B Gene Influenza Type A (PCR) Influenza Type B (PCR) RSV RNA Qual (PCR) SARS-CoV-2 RNA (RT-PCR) 04/14/25 04/14/25 06:16 07:40 MCV MCH MCHC RDW Plt Count MPV Immature Gran % (Auto) Neut % (Auto) Lymph % (Auto) Frio % (Auto) Eos % (Auto) Baso % (Auto) Lymph # (Auto) Frio # (Auto) Eos # (Auto) Baso # (Auto) Abs Immat Gran (auto) Absolute Neuts (auto) Absolute Nucleated RBC Nucleated RBC % (auto) Smear Tech's Comments Hold Purple Top PT Whole Blood PT INR Whole Blood INR APTT Anion Gap 16 Estim Creat Clear Calc 50.3 Estimated GFR > 60 POC Glucose Random Glucose 124 H Lactic Acid Lactic Acid F/U @ 2Hr Lactic Acid F/U @ 4Hr Calcium 7.9 L D Magnesium 2.0 Total Bilirubin AST ALT Alkaline Phosphatase Total Protein Albumin Triglycerides Cholesterol LDL Cholesterol, Calc HDL Cholesterol TSH 0.72 Urine Color Urine Appearance Urine pH Ur Specific [place] Urine Protein Urine Glucose (UA) Urine Ketones Urine Blood Urine Nitrite Ur Leukocyte Esterase Urine RBC Urine WBC Ur Squamous Epith Cells Urine Bacteria Hyaline Casts CSF Tube Number 2 CSF Appearance (b) Clear, Colorless CSF Glucose 58 CSF Total Protein 83.3 H Stl C. cayetanensis PCR Stool Rotavirus A PCR Stl Adenov F 40/41 PCR Stool Astrovirus (PCR) Stool Campylobacter PCR Stool Cryptosporidium PCR Stl Sh Tox Pr E STEC PCR Stool E coli O157 PCR Stl Enterotoxigenic E PCR Stool EPEC (PCR) Stool EAEC (PCR) Stl E. histolytica PCR Stool Giardia Lamblia PCR Stl P. shigelloides PCR Stool Salmonella PCR Stool Sapovirus (PCR) Stl Shigella/EIEC PCR St Y.enterocolitica PCR Stool Vibrio (PCR) Stl Vibrio cholerae PCR Stl Norovirus GI/GII PCR C. difficile Tox B Gene Influenza Type A (PCR) Influenza Type B (PCR) RSV RNA Qual (PCR) SARS-CoV-2 RNA (RT-PCR) Assessment and Plan (1) Hypertension: Status: Acute (2) Mixed hyperlipidemia: Status: Acute (3) Hypothyroidism: Status: Acute Plan 75-year-old female with pertinent history of unspecified dementia, insulin- dependent diabetes mellitus, hypothyroidism, hypertension, mood disorder, mixed hyperlipidemia who was brought to the emergency department for evaluation of altered mentation and fever. Acute metabolic encephalopathy, concern for possible encephalitis LP no evidence of meningitis meningoencephalitis panel pending for now continue amp, ceftriaxone vanco and acyclovir dc dexamethasone dc rest of abx if meningoencephalitis panel is negativ UTI with sepsis, likely source of confusion with underlying dementia Ceftriaxone as above Insulin-dependent diabetes mellitus: sldinding scale, resume lantus tomorrow diabetic diet Hypomagnesemia, corrected Acute lactic acidosis, unclear cause Hypothyroidism levothyroxine, tsh normal Dementia, continue aricept HLD statin GERP PPI DVT prophylaxis: Lovenox Full code. Unable to address code status at the time of admission. Readdress code status with family and patient in a.m.. Quality Stroke Does the patient have a stroke diagnosis?: No VTE Prior VTE?: No VTE Risk Level:: Medical - moderate - high VTE Device Contraindication: Treatment Not Indicated VTE Drug Contraindication: N/A - Med Ordered
[2025-04-14 10:16] LABS: Appearance CSF CLEAR; CSF Monos 17 %; CSF Tube # 4; Color CSF COLORLESS; Lymphocytes CSF 83 %; Red Blood Cell CSF 12 MM*3; White Blood Cell CSF 2 MM*3
[2025-04-14 10:17] LABS: Cryptococcus neoformans/gattii Not Detected (Not Detect.); Enterovirus Not Detected (Not Detect.); Escherichia coli K1 Not Detected (Not Detect.); Haemophilus influenzae Not Detected (Not Detect.); Herpes simplex virus 1 Not Detected (Not Detect.); Herpes simplex virus 2 Not Detected (Not Detect.); Human herpesvirus 6 Not Detected (Not Detect.); Human parechovirus Not Detected (Not Detect.); Listeria monocytogenes Not Detected (Not Detect.); Neisseria meningitidis Not Detected (Not Detect.); Streptococcus agalactiae Not Detected (Not Detect.); Streptococcus pneumoniae Not Detected (Not Detect.); Varicella zoster virus Not Detected (Not Detect.)
[2025-04-14 10:19] LABS: Appearance CSF HAZY; CSF Tube # 1; Color CSF STRAW
[2025-04-14 10:20] LABS: Red Blood Cell CSF 720 MM*3; White Blood Cell CSF 9 MM*3
[2025-04-14 10:21] LABS: CSF Monos 14 %; Lymphocytes CSF 35 %; Neutrophils CSF 51 %
[2025-04-14 11:03] LABS: Hematocrit 31.1 % (37.0-47.0); Hemoglobin 9.9 g/dl (12.0-16.0); Mean Corpuscular HGB Conc 31.8 g/dl (31.0-35.0); Mean Corpuscular Hemoglobin 28.1 pg (27.0-33.0); Mean Corpuscular Volume 88.4 fL (80.0-98.0); Mean Platelet Volume 11.4 fL (9.4-12.3); Platelet Count 118 X10*3/uL (160-400); Red Blood Count 3.52 X10*6/uL (4.20-5.50); Red Cell Distribution Width 13.6 % (11.0-16.0)
[2025-04-14 11:16] LABS: Glucose, Whole Blood 152 mg/dL (60-115)
[2025-04-14 11:43] LABS: SLIDE REVIEW MANUAL DIFF
[2025-04-14 11:46] LABS: Band Neutrophils Percent 5 % (3-5); Lymphocytes Absolute Manual 0.5 X10*3/uL (1.2-4.9); Lymphocytes Percent Manual 3 % (20-40); Monocytes Percent Manual 6 % (2-11); Neutrophils Absolute Manual 14.6 X10*3/uL (2.0-8.3); Neutrophils Percent Manual 86 % (45-73)
[2025-04-14 11:48] LABS: Polychromasia 1+ (0-2) /OIF; RBC Morphology NOTED; Schistocytes 1+ (0-2) /OIF
[2025-04-14 11:49] LABS: Platelet Estimate DECREASED (NORMAL); Platelet Morphology Comment NORMAL
[2025-04-14] MEDS: Insulin Lispro 100 UNIT/ML 3 ML VIAL SUBCUT ×3 (11:49→21:14)
--- NOTE | 2025-04-14 12:05 | MHC.CM.PN ---
PT [facility]IVES WITH [facility] HAS A RIDE HOME IS REQUESTING SHERITA [facility] DC PLAN HOME W/SHERITA
[2025-04-14 16:35] LABS: Glucose, Whole Blood 279 mg/dL (60-115)
[2025-04-14 19:27] LABS: Glucose, Whole Blood 228 mg/dL (60-115)
[2025-04-14] MEDS: vancomycin HCL 500 MG in 0.9 % Sodium Chloride 100 ML 110 MG IV (23:28)
[2025-04-14] MEDS: 0.9 % Sodium Chloride Flush 3 ML SYRINGE IVFLUSH (23:29)
[2025-04-15] MEDS: Ampicillin Sodium 2 GM in 0.9 % Sodium Chloride 100 ML IV ×3 (03:19→11:59)
[2025-04-15] MEDS: ACYCLOVIR SODIUM IV ×2 (03:55→10:46)
[2025-04-15] MEDS: SODIUM CHLORIDE 0.9% IV ×2 (03:55→10:46)
[2025-04-15] MEDS: Levothyroxine Sodium 100 MCG TABLET PO (06:01)
[2025-04-15] MEDS: Omeprazole 20 MG CAPSULE.DR PO (06:01)
[2025-04-15 07:10] VITALS: BP 136/65; PULSE 62; RESP 14; TEMP 36.7; O2SAT 96
[2025-04-15 07:10] LABS: Creatinine Clr Calc Pharmacy 41.3; Estimated Glomerular Filt Rate 54
[2025-04-15 07:32] LABS: Glucose, Whole Blood 302 mg/dL (60-115)
[2025-04-15] MEDS: Metoprolol Succinate ER 25 MG TAB.ER.24H PO (08:05)
[2025-04-15] MEDS: Donepezil HCl 5 MG TABLET PO (08:05)
[2025-04-15] MEDS: predniSONE 5 MG TABLET PO (08:05)
[2025-04-15] MEDS: Atorvastatin Calcium 80 MG TABLET PO (08:05)
[2025-04-15] MEDS: Insulin Glargine,Hum.rec.anlog 100 UNIT/ML 10 ML VIAL SUBCUT (08:06)
[2025-04-15] MEDS: Insulin Lispro 100 UNIT/ML 3 ML VIAL SUBCUT ×4 (08:06→20:47)
[2025-04-15] MEDS: 0.9 % Sodium Chloride Flush 3 ML SYRINGE IVFLUSH ×3 (08:07→20:47)
[2025-04-15] MEDS: Lactated Ringers 1,000 ML 125 ML IVCONT (08:07)
[2025-04-15] MEDS: cefTRIAXone sodium 2 GM VIAL IVPUSH ×2 (09:14→21:41)
[2025-04-15] MEDS: Insulin Glargine,Hum.rec.anlog 100 UNIT/ML 10 ML VIAL 7 UNIT SUBCUT (10:46)
[2025-04-15 11:34] LABS: Glucose, Whole Blood 270 mg/dL (60-115)
--- NOTE | 2025-04-15 13:37 | HO.PM.IMPN ---
Subjective Subjective Date of Service: 04/15/25 Interval History: seen and evalauted this motning feels better overall denies fever or chills back to her baseline mentation but feels weak no other events Review of Systems Review of Systems: Yes all other systems are reviewed and are negative Physical Exam Vital Signs: Vital Signs: Last Vital Signs Temp 98.0 F 04/15/25 07:10 Pulse 62 04/15/25 07:10 Resp 14 04/15/25 07:10 BP 136/65 04/15/25 07:10 Pulse Ox 96 04/15/25 07:10 O2 Del Method Room Air 04/15/25 07:10 BMI result Body Mass Index 24.8 Const: Other: Constitutional : Awake, interactive, not in distress Neck : Normal inspection, Supple Cardiovascular : RRR, no JVP, no lower extremity edema Respiratory : good bilateral air entry, no crackles, wheezes or rhonchi Gastrointestinal: soft, lax, Normal bowel sounds, Non tender Skin : Warm, Dry Neurological : Alert & oriented x3, No focal deficit , CN 2-12 within normal Objective Data Active Medications Acetaminophen (Acetaminophen 325 Mg Tablet) 650 mg PO Q6H PRN PRN Reason: Pain, Mild 1-3,fever,headache Atorvastatin Calcium (Atorvastatin Calcium 80 Mg Tablet) 80 mg PO DAILY [facility] Last Admin: 04/15/25 08:05 Dose: 80 mg Documented By: MARQUISE Calcium Carbonate (Calcium Carbonate 750 Mg Tab.Chew) 750 mg PO Q4H PRN PRN Reason: Heartburn Ceftriaxone Sodium (Ceftriaxone Sodium 2 Gm Vial) 2 gm IVPUSH Q12H [facility] Last Admin: 04/15/25 09:14 Dose: 2 gm Documented By: MARQUISE Dextrose (Dextrose 50 % 25 Gm/50 Ml Syringe) 25 gm IVPUSH Q15M PRN; Protocol PRN Reason: per Hypoglycemia Standing Ord. Last Admin: 04/14/25 03:33 Dose: 25 gm Documented By: TRISTAN Donepezil HCl (Donepezil Hcl 5 Mg Tablet) 5 mg PO DAILY [facility] Last Admin: 04/15/25 08:05 Dose: 5 mg Documented By: MARQUISE Enoxaparin Sodium (Enoxaparin Sodium 40 Mg/0.4 Ml Syringe) 40 mg SUBCUT Q24H [facility] Glucose (Glucose Gel 15 Gm Gel..Gram.) 15 gm PO Q15M PRN; Protocol PRN Reason: per Hypoglycemia Standing Ord. Vancomycin HCl 500 mg/ Sodium (Chloride) 110 mls @ 110 mls/hr IV Q24H [facility] Last Infusion: 04/15/25 00:33 Dose: Infused Documented By: SADAF Ampicillin Sodium 2 gm/ Sodium (Chloride) 100 mls @ 200 mls/hr IV Q6H [facility] Acyclovir Sodium 650 mg/ (Sodium Chloride) 113 mls @ 113 mls/hr IV Q12H [facility] Insulin Glargine (Insulin Glargine,Hum.Rec.Anlog 100 Unit/Ml 10 Ml Vial) 12 unit SUBCUT DAILY [facility] Insulin Human Lispro (Insulin Lispro 100 Unit/Ml 3 Ml Vial) 0 unit SUBCUT QIDACHS [facility]; Protocol Last Admin: 04/15/25 11:59 Dose: 6 unit Documented By: MARQUISE Levothyroxine Sodium (Levothyroxine Sodium 100 Mcg Tablet) 100 mcg PO DAILY@0600 [facility] Last Admin: 04/15/25 06:01 Dose: 100 mcg Documented By: SADAF Magnesium Hydroxide (Milk Of Magnesia 30 Ml Oral.Susp) 30 ml PO DAILY PRN PRN Reason: Constipation Melatonin (Melatonin 3 Mg Tablet) 6 mg PO BEDTIME PRN PRN Reason: Insomnia Metoprolol Succinate (Metoprolol Succinate Er 25 Mg Tab.Er.24h) 25 mg PO DAILY [facility]; Protocol Last Admin: 04/15/25 08:05 Dose: 25 mg Documented By: MARQUISE Omeprazole (Omeprazole 20 Mg Capsule.) 20 mg PO DAILY@0630 [facility] Last Admin: 04/15/25 06:01 Dose: 20 mg Documented By: SADAF Ondansetron HCl (Ondansetron Hcl 4 Mg/2 Ml Vial) 4 mg IVPUSH Q8H PRN PRN Reason: Nausea and Vomiting Pharmacy Consult (Consult Rx Vancomycin Dosing) 1 each MISCELLANE DAILY PRN PRN Reason: Consult order Prednisone (Prednisone 5 Mg Tablet) 5 mg PO DAILY [facility] Last Admin: 04/15/25 08:05 Dose: 5 mg Documented By: MARQUISE Sodium Chloride (0.9 % Sodium Chloride Flush 3 Ml Syringe) 3 ml IVFLUSH QSHIFT [facility] Last Admin: 04/15/25 08:07 Dose: 3 ml Documented By: MARQUISE Labs 04/14/25 10:51 04/15/25 06:42 Labs: Laboratory Results - last 24 hr 04/14/25 04/14/25 04/15/25 16:30 19:08 06:42 Hold Purple Top SEE NOTE Estim Creat Clear Calc 41.3 Estimated GFR 54 POC Glucose 279 H 228 H 04/15/25 04/15/25 07:12 11:25 Hold Purple Top Estim Creat Clear Calc Estimated GFR POC Glucose 302 H 270 H Microbiology Microbiology Results: Microbiology 04/14/25 00:43 Urine Culture - Preliminary Urine clean catch - Clean Catch Midstream Gram negative eric 04/14/25 07:40 Gram Stain - Final Cerebrospinal Fluid Fluid Description - Final CSF Culture - Preliminary No growth after 1 day 04/13/25 21:52 Blood Culture - Preliminary Blood - Venous No growth after 24 hours. 04/13/25 21:52 Blood Culture - Preliminary Blood - Venous No growth after 24 hours. Assessment and Plan (1) Acute UTI: Status: Acute (2) Severe sepsis: Status: Acute (3) Acute metabolic encephalopathy: Status: Acute (4) Hyperglycemia due to type 2 diabetes mellitus: Status: Acute (5) Hypomagnesemia: Status: Acute Plan 75-year-old female with pertinent history of unspecified dementia, insulin-dependent diabetes mellitus, hypothyroidism, hypertension, mood disorder, mixed hyperlipidemia who was brought to the emergency department for evaluation of altered mentation and fever. Acute metabolic encephalopathy likely from URine infection and sepsis concern for possible encephalitis LP no evidence of meningitis meningoencephalitis panel negative U.Cx growing GNR Discontinue ampicillin, vanco and acyclovir Elevated PRotein in CSF could be multifactorial; Sepsis, seizure?, dc dexamethasone Keep on Ceftriaxone only pending final cultures monitor and reorientation Consider EEG, brain MRI, or autoimmune panel if symptoms persist or worsen. Insulin-dependent diabetes mellitus: sldinding scale, resume lantus tomorrow diabetic diet Hypomagnesemia, corrected Acute lactic acidosis, unclear cause Hypothyroidism levothyroxine, tsh normal Dementia, continue aricept HLD statin GERP PPI DVT prophylaxis: Lovenox Full code. The patient will need overnight stay for treatment of Sepsis pending final cultures on IV antibiotics. Quality Stroke Does the patient have a stroke diagnosis?: No VTE Prior VTE?: No VTE Risk Level:: Medical - moderate - high VTE Device Contraindication: Treatment Not Indicated VTE Drug Contraindication: N/A - Med Ordered
[2025-04-15 15:14] VITALS: BP 154/67; PULSE 61; RESP 14; TEMP 36.8; O2SAT 96
[2025-04-15 16:39] LABS: Glucose, Whole Blood 246 mg/dL (60-115)
[2025-04-15 20:09] LABS: Glucose, Whole Blood 258 mg/dL (60-115)
[2025-04-15] MEDS: Enoxaparin Sodium 40 MG/0.4 ML SYRINGE SUBCUT (20:47)
[2025-04-15 21:34] LABS: Vancomycin Random 8.9 mcg/mL (15-20)
[2025-04-15 23:25] VITALS: BP 156/67; PULSE 61; RESP 18; TEMP 36; O2SAT 95
[2025-04-16] MEDS: Levothyroxine Sodium 100 MCG TABLET PO (05:21)
[2025-04-16] MEDS: Omeprazole 20 MG CAPSULE.DR PO (05:21)
[2025-04-16 07:17] VITALS: BP 167/71; PULSE 55; RESP 12; TEMP 36.7; O2SAT 97
[2025-04-16 07:23] LABS: Glucose, Whole Blood 192 mg/dL (60-115)
[2025-04-16 07:51] LABS: MANUAL DIFF FLAG NO
[2025-04-16] MEDS: Metoprolol Succinate ER 25 MG TAB.ER.24H PO (07:56)
[2025-04-16] MEDS: predniSONE 5 MG TABLET PO (07:56)
[2025-04-16] MEDS: Insulin Glargine,Hum.rec.anlog 100 UNIT/ML 10 ML VIAL 12 UNIT SUBCUT (07:56)
[2025-04-16] MEDS: Donepezil HCl 5 MG TABLET PO (07:56)
[2025-04-16] MEDS: Atorvastatin Calcium 80 MG TABLET PO (07:56)
[2025-04-16] MEDS: 0.9 % Sodium Chloride Flush 3 ML SYRINGE IVFLUSH (07:57)
[2025-04-16] MEDS: Insulin Lispro 100 UNIT/ML 3 ML VIAL SUBCUT ×2 (07:57→11:48)
[2025-04-16 08:07] LABS: Estimated Average Glucose 283 mg/dL; Hemoglobin A1C 224.8792 umol/L; Hemoglobin A1c % 11.5 % (<6.0); Total Hemoglobin (HGBA1C) 2197.4386 umol/L
[2025-04-16 08:08] LABS: Basophils Percent Auto 0.3 % (0-2); Eosinophils Absolute Auto 0.1 X10*3/uL (0.0-0.4); Eosinophils Percent Auto 0.7 % (0-4); Hematocrit 25.7 % (37.0-47.0); Hemoglobin 8.3 g/dl (12.0-16.0); Imm Gran Abs Auto 0.06 X10*3/uL (0.00-0.03); Imm Gran Pct Auto 0.6 % (0.0-0.4); Lymphocytes Absolute Auto 2.2 X10*3/uL (1.2-4.9); Lymphocytes Percent Auto 22.3 % (20-40); Mean Corpuscular HGB Conc 32.3 g/dl (31.0-35.0); Mean Corpuscular Hemoglobin 27.9 pg (27.0-33.0); Mean Corpuscular Volume 86.2 fL (80.0-98.0); Mean Platelet Volume 12.5 fL (9.4-12.3); Monocytes Absolute Auto 0.6 X10*3/uL (0.1-1.2); Monocytes Percent Auto 6.2 % (2-11); Neutrophils Percent Auto 69.9 % (45-73); Platelet Count 120 X10*3/uL (160-400); Red Blood Count 2.98 X10*6/uL (4.20-5.50); Red Cell Distribution Width 13.7 % (11.0-16.0)
[2025-04-16 08:11] LABS: Anion Gap 10 (12-20); Blood Urea Nitrogen 22 mg/dL (9-16); Carbon Dioxide 22 mmol/L (22-29); Chloride 111 mmol/L (96-108); Creatinine Clr Calc Pharmacy 41.7; Estimated Glomerular Filt Rate 55; Glucose Random 209 mg/dL (60-115); Potassium 3.3 mmol/L (3.3-5.1); Sodium 140 mmol/L (135-145)
--- NOTE | 2025-04-16 10:40 | P.DS_ITS ---
DS: Providers Provider Date of Service: 04/16/25 Date of admission: 04/14/25 01:44 Date of discharge: 04/16/25 Primary care physician: Suha Hudson MD DS: Diagnosis Discharge Diagnosis (1) Acute UTI: Status: Acute (2) Severe sepsis: Status: Acute (3) Acute metabolic encephalopathy: Status: Acute (4) Hyperglycemia due to type 2 diabetes mellitus: Status: Acute (5) Hypomagnesemia: Status: Acute (6) Acute lactic acidosis: Status: Acute DS: Summary Hospital Course Hospital Course: Admission note HPI This is a 75-year-old female with pertinent history of unspecified dementia, insulin-dependent diabetes mellitus, hypothyroidism, hypertension, mood disorder, mixed hyperlipidemia who was brought to the emergency department for evaluation of altered mentation and fever. Unable to obtain history from the patient. Patient is lethargic and drowsy at the time of my evaluation. Awakens to verbal stimulus but falls back asleep mid conversation. Does not know why she is in the hospital. She is disoriented to place and time. She has no complaints at the time of my evaluation. History obtained with the help of ER provider and chart review. Patient was brought in as she was found confused and febrile at home. Also was having watery stools as per the daughter. Unable to obtain review of systems. In the emergency department, patient was found to be febrile with fever 103.6 and leukocytosis 13.2. Hospital course The patient was admitted primarly for evaluated of Acute metabolic encephalopathy with evidence of sepsis as the main concern for possible encephalitis. Had LP showing no evidence of meningitis as cultures came back negative and meningoencephalitis panel negative but was covered with ampicillin, vanco and acyclovir along with Ceftriaxone along with Dexamethasone until cultures came back. She was also noticed to have elevated PRotein in CSF whice could be multifactorial. Noticed to have Urine Cx growing GNR and believed to have her encephalopathy as a result of Urosepsis. Mentation improved to baseline. blood cultures remained negative. Final urine culture grew sensitive Ecoli and she was treated with Ceftriaxone. To be discharged on 1 more week of Ceftin. She was also noted to have poorly controlled Insulin-dependent diabetes mellitus with hyperglycemia. Placed on sliding scale and lantus insulin. Advised to take better control of sugar as HbA1c came back at 11.5. To prescribed MEtformin and ask [facility] to follow with her for monitoring and follow up with PCP. Noted to have acute Hypomagnesemia on presentation which was corrected. She had Acute lactic acidosis at time of presentation related to urosepsis. resolved with IV fluids. She was able to ambulate with nursing staff using walker. will be followed by [facility] at home for PT. plan discussed with her daughter Duran who understood and agreed. Discharge plan Continue Ceftin for 1 more week Start Metformin for better sugar control Monitor blood sugar 3-4 times a day for next week and report readings to PCP Visiting nurses to help with sugar monitoring and physical therapy Time Attestation Discharge Coordination Time (in mins): 37 Quality: Safe Use of Opioids Does Pt have an Active Cancer Diagnosis on the Problem List?: No Quality: Stroke Does the patient have a stroke diagnosis?: No Physical Exam Vital Signs: Vital Signs: Last Vital Signs Temp 98.0 F 04/16/25 07:17 Pulse 55 04/16/25 07:17 Resp 12 04/16/25 07:17 BP 167/71 H 04/16/25 07:17 Pulse Ox 97 04/16/25 07:17 O2 Del Method Room Air 04/16/25 07:17 BMI result Body Mass Index 24.8 Const: Other: Constitutional : Awake, interactive, not in distress Neck : Normal inspection, Supple Cardiovascular : RRR, no JVP, no lower extremity edema Respiratory : good bilateral air entry, no crackles, wheezes or rhonchi Gastrointestinal: soft, lax, Normal bowel sounds, Non tender Skin : Warm, Dry Neurological : Alert & oriented x3, No focal deficit , CN 2-12 within normal DS: Data Data Completed and Pending Labs on day of discharge: Laboratory Results - last 24 hr 04/15/25 04/15/25 04/15/25 11:25 16:12 19:44 WBC RBC Hgb Hct MCV MCH MCHC RDW Plt Count MPV Immature Gran % (Auto) Neut % (Auto) Lymph % (Auto) [place] % (Auto) Eos % (Auto) Baso % (Auto) Lymph # (Auto) [place] # (Auto) Eos # (Auto) Baso # (Auto) Abs Immat Gran (auto) Absolute Neuts (auto) Absolute Nucleated RBC Nucleated RBC % (auto) Sodium Potassium Chloride Carbon Dioxide Anion Gap BUN Creatinine Estim Creat Clear Calc Estimated GFR POC Glucose 270 H 246 H 258 H Random Glucose Estimat Average Glucose Hemoglobin A1c % Calcium Random Vancomycin 04/15/25 04/16/25 04/16/25 21:06 07:19 07:41 WBC 10.0 RBC 2.98 L Hgb 8.3 L Hct 25.7 L MCV 86.2 MCH 27.9 MCHC 32.3 RDW 13.7 Plt Count 120 L MPV 12.5 H Immature Gran % (Auto) 0.6 H Neut % (Auto) 69.9 Lymph % (Auto) 22.3 [place] % (Auto) 6.2 Eos % (Auto) 0.7 Baso % (Auto) 0.3 Lymph # (Auto) 2.2 [place] # (Auto) 0.6 Eos # (Auto) 0.1 Baso # (Auto) 0.0 Abs Immat Gran (auto) 0.06 H Absolute Neuts (auto) 7.0 Absolute Nucleated RBC 0.000 Nucleated RBC % (auto) 0.0 Sodium 140 Potassium 3.3 D Chloride 111 H Carbon Dioxide 22 Anion Gap 10 L BUN 22 H Creatinine Cancelled Estim Creat Clear Calc Estimated GFR POC Glucose 192 H Random Glucose Estimat Average Glucose Hemoglobin A1c % Calcium Random Vancomycin 8.9 L 04/16/25 04/16/25 04/16/25 07:41 07:41 07:41 WBC RBC Hgb Hct MCV MCH MCHC RDW Plt Count MPV Immature Gran % (Auto) Neut % (Auto) Lymph % (Auto) [place] % (Auto) Eos % (Auto) Baso % (Auto) Lymph # (Auto) [place] # (Auto) Eos # (Auto) Baso # (Auto) Abs Immat Gran (auto) Absolute Neuts (auto) Absolute Nucleated RBC Nucleated RBC % (auto) Sodium Potassium Chloride Carbon Dioxide Anion Gap BUN Creatinine 0.99 Estim Creat Clear Calc Cancelled 41.7 Estimated GFR Cancelled 55 POC Glucose Random Glucose 209 H Estimat Average Glucose 283 Hemoglobin A1c % 11.5 H Calcium 8.0 L Random Vancomycin Preliminary micro results at discharge 04/14/25 07:40 CSF Culture - Preliminary Cerebrospinal Fluid No growth after 2 days 04/13/25 21:52 Blood Culture - Preliminary Blood - Venous No growth after 48 hours. 04/13/25 21:52 Blood Culture - Preliminary Blood - Venous No growth after [address] scan - head: Radiologist's impression: ITS Impressions Lumbar Puncture Fluoroscopy 04/14/25 07:00 IMPRESSION: Successful fluoroscopy-guided L3-4 lumbar puncture performed without immediate complications. Electronically signed by: Mejia Hammond MD 04/14/2025 09:08 AM EDT Discharge Plan Discharge Anticipated Discharge Date/Time: 04/16/25 10:32 Patient Disposition: Home Health Service Discharge Diagnosis: Urine infection Encephalopathy Uncontrolled diabetes Referrals: Suha Hudson MD [Primary Care Provider] - 1 Week Discharge Medications: New metformin 500 mg tablet 500 mg PO BID Qty: 60 0RF cefuroxime axetil 500 mg tablet 500 mg PO BID Qty: 14 0RF Continued atorvastatin 80 mg tablet 80 mg PO DAILY donepezil 5 mg tablet 5 mg PO DAILY prednisone 5 mg tablet 5 mg PO DAILY levothyroxine 100 mcg tablet 100 mcg PO DAILY@0600 pantoprazole 40 mg tablet,delayed release (DR/EC) 40 mg PO DAILY metoprolol succinate 25 mg tablet extended release 24 hr 25 mg PO DAILY insulin degludec [Tresiba FlexTouch U-100] 100 unit/mL (3 mL) insulin pen 14 unit subcut DAILY insulin lispro [Humalog Jordan KwikPen U-100] 100 unit/mL insulin pen, half- unit See Protocol SUBCUT TIDWM Protocol: Insulin Correction Scale Less than or equal to 110 ---- Give (units): 0 111 to 150 Give (units): 0 151 to 200 Give (units): 2 201 to 250 Give (units): 4 251 to 300 Give (units): 6 301 to 350 Give (units): 8 Greater than 350 Give (units): 10 Call MD if Blood Glucose > : 350 Discharge Orders: Discharge Order (Routine); Ordered 05/18/25 Ordered By: Kota Carrillo Diet: Diabetic diet Activity on Discharge: As tolerated Stand Alone Forms: Patient Portal Discharge page Print Language: Citizen Of [place] Care Plan Goals: Continue Ceftin for 1 more week Start Metformin for better sugar control Monitor blood sugar 3-4 times a day for next week and report readings to PCP Visiting nurses to help with sugar monitoring and physical therapy Health Concerns: URine infection Uncontrolled diabetes Plan of Treatment: Ceftin Metformin Visiting nurses Assessment: as above
--- NOTE | 2025-04-16 10:54 | P.F2F_ITS ---
Service Date Service Date: 04/16/25 Encounter Date of encounter: 04/16/25 Encounter: Uncontrolled diabetes Physical deconditioning Reasons for Services Signs and symptoms assessed: Physical deconditioning Reason for jail: monitoring of unstable blood sugar, medication management and teach disease management Reason for physical therapy: home safety and mobility and therapeutic exercises Homebound: Leaving the home is medically contraindicated at this time without the asist of a device and/or another person due th the listed conditions above and below. Reason homebound: unsteady gait / fall risk and unable to drive Certification: Based on the above findings, I certify that this patient is confined to the home and needs intermittent jail care, physical therapy and/or speech therapy, or continues to need occupational therapy. The patient is under my care, and I have initiated the establishment of the plan of care. The patient will be followed by a physician who will periodically review the plan of care. Time Spent With Patient Time: Total time managing care of this patient today ____ minutes.
[2025-04-16] MEDS: cefTRIAXone sodium 2 GM VIAL IVPUSH (11:03)
[2025-04-16 11:07] LABS: Glucose, Whole Blood 269 mg/dL (60-115)
--- NOTE | 2025-04-16 11:32 | MHC.CM.PN ---
Addendum entered by Josselin Velasquez 04/16/25 12:17: CM SPOKE TO PTS DAUGHTER, JUDITH [phone] WHO STATES THE PT ALSO HAS [employer] INSURANCE WHICH IS NOT LISTED PER DISCUSSION, A TASK WAS SENT [place] [facility] [place] UP ON THIS JUDITH REPORTS SHE WILL BE THE ONE PROVIDING TRANSPORT AND THE PT WILL CALL HER ONCE SHE IS READY TO LE[place] [facility] [place] Original Note: PT WILL DC HOME TODAY WITH SHERITA ROBERSON FOR SN AND PT FAMILY TO TRANSPORT
[2025-04-16 16:00] VITALS: BP 183/76; PULSE 52; RESP 18; TEMP 37.2; O2SAT 98
--- NOTE | 2025-04-20 12:32 | P.CDIM_ITS ---
PROVIDER RESPONSE TEXT: To clarify, the appropriate diagnosis supported by the clinical indicators: Diabetes mellitus with hypoglycemia: resolved QUERY TEXT: PHYSICIAN'S DOCUMENTATION REQUEST Date of Query: 04/14/2025 11:20 AM EDT Patient Name: Kirstie Ching Admit Date: 04/14/2025 Dear Sohan Camacho MD, A review of the medical record indicates additional documentation may be needed. Please review below and update the documentation accordingly. Clinical Indicators: LABS 04/14 - POC glucose 58 L 145 Insulin Insulin-dependent diabetes mellitus Sliding scale, resume Lantus tomorrow Diabetic diet Please clarify if there is a diagnosis that correlates with the above findings: Diabetes mellitus with hypoglycemia resolved, possible, probable, suspected etc. Other specified Other (explain) Clinically unable to determine (explain) Thank you, Liz La, CCS, CDIS Use of terms such as suspected, likely, concern for, or probable (associated with a specific diagnosi s that is being evaluated, monitored, or treated as if it exists) are acceptable and can be coded in the inpatient se tting, when documented at the time of discharge. Please use your independent medical judgment in providing your response. THIS QUERY IS PART OF THE PERMANENT MEDICAL RECORD
== END 2025-04-16 16:30 | disposition home health service (06) | DRG 871 ==
LOC: HO.ED 23:34 → HO.EDOVER 04-14 02:00 → HO.S3 04-14 06:31
PROVIDERS: Internal Medicine; Admitting Provider Student in an Organized Health Care Education/Training Program; Emergency Provider Internal Medicine; PCP Internal Medicine; Visit Provider Student in an Organized Health Care Education/Training Program
DX: A41.9 Sepsis, unspecified organism (principal); G93.41 Metabolic encephalopathy; N39.0 Urinary tract infection, site not specified; R65.20 Severe sepsis without septic shock; E03.9 Hypothyroidism, unspecified; E11.649 Type 2 diabetes mellitus with hypoglycemia without coma; F03.90 Unspecified dementia, unspecified severity, without behavioral disturbance, psychotic disturbance, mood disturbance, and anxiety; B96.20 Unspecified Escherichia coli [E. coli] as the cause of diseases classified elsewhere; E78.2 Mixed hyperlipidemia; E11.65 Type 2 diabetes mellitus with hyperglycemia; E83.42 Hypomagnesemia; Z20.822 Contact with and (suspected) exposure to COVID-19; Z79.4 Long term (current) use of insulin; Z79.52 Long term (current) use of systemic steroids; Z79.890 Hormone replacement therapy; Z79.899 Other long term (current) drug therapy
CPT/HCPCS: 0241U; 36415; 62328; 70450; 70496; 70498; 71045; 74176; 80048; 80053; 80061; 80202; 81001; 81003; 82565; 82945; 82947; 83036; 83605; 83735; 84157; 84443; 84484; 85007; 85025; 85027; 85610; 85730; 87015; 87040; 87070; 87086; 87088; 87186; 87205; 87483; 87493; 87507; 89051; 93005; 99285; J0131; J0133; J0290; J0696; J1100; J1650; J2405; J3370; J3371; J3475; J7120; Q9967

== ENCOUNTER → 2025-04-13 21:14 | Outpatient (BNV) | payer MEDICARE, SELFPAY | PROVIDERS: Emergency Provider Internal Medicine; Visit Provider Specialist | DX: R53.83 Other fatigue (principal) | CPT/HCPCS: 70450; 70496; 70498; 71045 ==

== ENCOUNTER → 2025-04-13 21:14 | Outpatient (BNV) | payer MEDICARE, SELFPAY | PROVIDERS: Admitting Provider Student in an Organized Health Care Education/Training Program; Emergency Provider Internal Medicine; PCP Internal Medicine; Visit Provider Internal Medicine Cardiovascular Disease | DX: R94.31 Abnormal electrocardiogram [ECG] [EKG] (principal); I63.9 Cerebral infarction, unspecified | CPT/HCPCS: 93010 ==

== ENCOUNTER 2025-04-14 01:44 | Outpatient (BNV) | payer MEDICARE, SELFPAY | END 2025-04-14 07:00 | PROVIDERS: Admitting Provider Student in an Organized Health Care Education/Training Program; Emergency Provider Internal Medicine; PCP Internal Medicine; Visit Provider Radiology Diagnostic Radiology | DX: G40.309 Generalized idiopathic epilepsy and epileptic syndromes, not intractable, without status epilepticus (principal) | CPT/HCPCS: 62328 ==

== ENCOUNTER → 2025-04-14 01:44 | Outpatient (BNV) | payer MEDICARE, SELFPAY | PROVIDERS: Admitting Provider Student in an Organized Health Care Education/Training Program; Emergency Provider Internal Medicine; PCP Internal Medicine; Visit Provider Student in an Organized Health Care Education/Training Program | DX: N39.0 Urinary tract infection, site not specified (principal); A41.9 Sepsis, unspecified organism; R65.20 Severe sepsis without septic shock; G93.41 Metabolic encephalopathy; E11.65 Type 2 diabetes mellitus with hyperglycemia; E83.42 Hypomagnesemia | CPT/HCPCS: 99223; 99232; 99239; 99499; G0180 ==